=== PATIENT | female | born 1995 | race Caucasian/White ===

== ENCOUNTER → 2017-03-01 | Outpatient (CLI) | payer OTHER ==
[~2017-03-01] MED LIST: DIPHENHYDRAMINE HCL 25 MG CAPSULE ONE
[2017-03-01 14:33] LABS: ABSOLUTE BASOPHILS # (AUTO) 0.1 10^3/uL (0.0-0.2); ABSOLUTE EOSINOPHILS # (AUTO) 0.2 10^3/uL (0.0-0.6); ABSOLUTE LYMPHOCYTES (AUTO) 2.6 10^3/uL (0.5-4.7); ABSOLUTE MONOCYTES (AUTO) 0.6 10^3/uL (0.1-1.4); ABSOLUTE NEUT (AUTO) 5.7 10^3/uL (1.7-8.2); BASOPHILS % (AUTO) 0.8 % (0-2); EOSINOPHILS % (AUTO) 2.1 % (0-6); HEMATOCRIT 39.4 % (36.0-47.0); HGB HCT DIFFERENCE 2.6; LYMPHOCYTES % (AUTO) 28.8 % (13-45); MEAN CORPUSCULAR HEMOGLOBIN 30.8 pg (27.0-33.4); MEAN CORPUSCULAR HGB CONC 35.4 g/dL (32.0-36.0); MEAN CORPUSCULAR VOLUME 87 fl (80-97); MONOCYTES % (AUTO) 6.1 % (3-13); RED BLOOD COUNT 4.54 10^6/uL (3.72-5.28); RED CELL DISTRIBUTION WIDTH 13.9 % (11.5-14.0); SEGMENTED NEUTROPHILS % (AUTO) 62.2 % (42-78); WHITE BLOOD COUNT 9.2 10^3/uL (4.0-10.5)
[2017-03-01 14:55] LABS: ALANINE AMINOTRANSFERASE 215 U/L (9-52); ALBUMIN 4.7 g/dL (3.5-5.0); ALKALINE PHOSPHATASE 101 U/L (38-126); ANION GAP 16 (5-19); ASPARTATE AMINO TRANSFERASE 338 U/L (14-36); BILIRUBIN,DIRECT 0.4 mg/dL (0.0-0.4); BILIRUBIN,TOTAL 0.5 mg/dL (0.2-1.3); BLOOD UREA NITROGEN 11 mg/dL (7-20); CALCIUM 10.2 mg/dL (8.4-10.2); CARBON DIOXIDE 24 mmol/L (22-30); CHLORIDE 103 mmol/L (98-107); CREATININE RESULT 0.63 mg/dL (0.52-1.25); GLUCOSE 90 mg/dL (75-110); POTASSIUM 4.4 mmol/L (3.6-5.0); SODIUM 143.1 mmol/L (137-145); TOTAL PROTEIN 7.8 g/dL (6.3-8.2)
--- NOTE | 2017-03-01 15:19 | RADIOLOGY REPORT (SQ) ---
EXAM DESCRIPTION: CTA CHEST COMPLETED DATE/TIME: 03/01/2017 3:01 pm REASON FOR STUDY: CHEST PAIN (R07.9) R07.9 CHEST PAIN, UNSPECIFIED R00.0 TACHYCARDIA, UNSPECIFIED COMPARISON: CT SOFT TISSUE NECK WITH IV CONTRAST 04/19/2013 TECHNIQUE: CT scan of the chest performed using helical scanning technique with dynamic intravenous contrast injection. Images reviewed with lung, soft tissue and bone windows. Reconstructed coronal and sagittal MPR images reviewed. Additional 3 dimensional post-processing performed to develop Maximal Intensity Projection images (CA P). All images stored on PACS. All CT scanners at this facility use dose modulation, iterative reconstruction, and/or weight based d osing when appropriate to reduce radiation dose to as low as reasonably achievable (ALARA). [facility]: Dose Right [facility]: CareDose [facility]: Dose Right [facility]: Teradose 4D [facility]: Protein Forest CONTRAST TYPE AND DOSE: 72 mL of IV Isovue 370- low osmolar. Immediately post injection, patient sneezed, head EGA thigh is, watery eyes, itchy row. No wheezing or stridor. Vital signs stable. This responded to 50 mg of p.o. Benadryl. Contrast bolus optimized for the pulmonary arteries. Not diagnostic for the aorta. RENAL FUNCTION: None required. The patient is less than 50 years old. RADIATION DOSE: Up-to-date CT equipment and radiation dose reduction techniques were employed. CTDIv ol: 11.3 - 15.4 mGy. DLP: 494 mGy-cm. . LIMITATIONS: None. FINDINGS: LUNGS AND PLEURA: No masses, infiltrates, pneumothorax. No pleural effusions, calcificati ons. AORTA AND GREAT VESSELS: No aneurysm. Contrast bolus not optimized for the aorta. HEART: No pericardial effusion. No significant coronary artery calcifications. PULMONARY ARTERIES: No emboli visualized in the main pulmonary arteries or the segmental branches. HILAR AND MEDIASTINAL STRUCTURES: No identified masses or abnormal nodes. HARDWARE: None in the chest. UPPER ABDOMEN: No significant findings. Limited exam. THYROID AND OTHER SOFT TISSUES: No masses. No adenopathy. BONES: No acute or significant finding. 3D MIPS: Confirm above findings. OTHER: No other significant finding. IMPRESSION: NORMAL CTA OF THE CHEST. NO PULMONARY EMBOLI. Minor contrast reaction which responded to p.o. Benadryl COMMENT: Quality ID # [id number]: Final reports with documentation of one or more dose reduction techniques (e.g., Automated exposure control, adjustment of the mA and/or kV according to patient size, use of iterative reconstruction technique) TECHNICAL DOCUMENTATION: JOB ID: [id number] [employer]- All Rights Reserved
== END ==
LOC: RAD 13:51
PROVIDERS: ATTEND Physician Assistant
DX: R07.9 Chest pain, unspecified (principal); Z30.09 Encounter for other general counseling and advice on contraception
CPT/HCPCS: 36415; 71275; 80053; 82565; 84484; 84702; 85025

== ENCOUNTER → 2017-03-09 | Outpatient (CLI) | payer OTHER ==
--- NOTE | 2017-03-09 10:35 | WOMENS IMAGING REPORT ---
EXAM DESCRIPTION: U/S ABDOMEN LIMITED COMPLETED DATE/TIME: 03/09/2017 7:20 am REASON FOR STUDY: ABNORMAL LIVER FUNCTION TEST R79.89 OTHER SPECIFIED ABNORMAL FINDINGS OF BLOOD CH EMISTRY COMPARISON: CT angio chest 03/01/2017 TECHNIQUE: Dynamic and static grayscale images acquired of the abdomen and recorded on PACS. Additio nal selected color Doppler and spectral images recorded. LIMITATIONS: Midline bowel gas FINDINGS: PANCREAS: No masses. Visualized pancreatic duct normal caliber. LIVER: Normal size. No masses. Mild increased echogenicity from fatty infiltration LIVER VASCULATURE: Normal directional flow of the main portal vein and hepatic veins. GALLBLADDER: No stones. Normal wall thickness. No pericholecystic fluid. ULTRASOUND-DETECTED CASTORENA'S SIGN: Negative. INTRAHEPATIC DUCTS AND COMMON DUCT: CBD and intrahepatic ducts normal caliber. No filling defects. INFERIOR VENA CAVA: Normal flow. AORTA: No aneurysm. RIGHT KIDNEY: Normal size. Normal echogenicity. No solid or suspicious masses. No hydronephrosis. No calcifications. PERITONEAL AND RIGHT PLEURAL SPACE: No ascites or effusions. OTHER: No other significant findings. IMPRESSION: FATTY LIVER. OTHERWISE, NORMAL RIGHT UPPER QUADRANT ULTRASOUND. TECHNICAL DOCUMENTATION: JOB ID: [id number] [email or web address]- All Rights Reserved
== END ==
LOC: RAD 06:51
PROVIDERS: ATTEND Family Medicine
DX: R79.89 Other specified abnormal findings of blood chemistry (principal); K76.0 Fatty (change of) liver, not elsewhere classified
CPT/HCPCS: 76705

== ENCOUNTER 2018-09-05 13:47 | Emergency (ER) | payer SELFPAY ==
--- NOTE | 2018-09-05 14:41 | ER Document Report ---
ED Medical Screen (RME) - General Chief Complaint: Vag Bleeding, +preg <12wks Stated Complaint: VAGINAL BLEEDING Time Seen by Provider: 09/05/18 14:26 Primary Care Provider: MARTY CASAREZ MD [Primary Care Provider] - Follow up as needed Mode of Arrival: Ambulatory Information source: Patient TRAVEL OUTSIDE OF THE [place] IN LAST 30 DAYS: No - HPI Patient complains to provider of: PREG, VAG BLEEDING Notes: 09/05/18 14:39 Patient is here with complaints of vaginal bleeding and cramping. The patient is proximately 6 weeks . Last normal menstrual. Was beginning of July. She states that she thinks is approximately 6 weeks . This is her second , one living child. States that earlier today at work after urinating she noticed some blood in the toilet as well on the toilet paper. She is been having some intermittent right lower pelvic cramping for the last 2 days. No pain now. No fever. Exam Nontoxic, no distress. Lungs clear and equal throughout. Heart sounds normal. No abdominal tenderness on limited triage abdominal exam. Plan CBC, CMP, Rh, quantitative hCG, urinalysis, pelvic ultrasound. An initial examination was made on the patient as part of the triage process, and it was determined a more comprehensive evaluation was necessary. Initial labs were ordered and patient was transferred to another provider in the ED who assumed care and finished evaluation and plan. - Related Data Allergies/Adverse Reactions: Iodinated Contrast- Oral and IV Dye Allergy (Mild, Verified 03/01/17 15:21) Sneezing cefdinir [From Omnicef] Allergy (Verified 04/19/13 13:10) lisinopril Allergy (Verified 09/05/18 13:48) Past Medical History Renal/ Medical History: Denies: Hx Peritoneal Dialysis Physical Exam - Vital signs Vitals: Temp Pulse Resp BP Pulse Ox 98.4 F 107 H 16 142/78 H 96 09/05/18 13:52 09/05/18 13:52 09/05/18 13:52 09/05/18 13:52 09/05/18 13:52 Course - Vital Signs Vital signs: Temp Pulse Resp BP Pulse Ox 98.4 F 107 H 16 142/78 H 96 09/05/18 13:52 09/05/18 13:52 09/05/18 13:52 09/05/18 13:52 09/05/18 13:52 Doctor's Discharge - Discharge Referrals: MARTY CASAREZ MD [Primary Care Provider] - Follow up as needed
[2018-09-05 15:52] LABS: APPEARANCE,URINE CLEAR; BILIRUBIN,URINE NEGATIVE (NEGATIVE); COLOR,URINE YELLOW; GLUCOSE, URINE NEGATIVE (NEGATIVE); KETONES,URINE NEGATIVE (NEGATIVE); LEUKOCYTE ESTERASE,URINE NEGATIVE (NEGATIVE); NITRITE,URINE NEGATIVE (NEGATIVE); PROTEIN,URINE NEGATIVE (NEGATIVE); UROBILINOGEN,URINE NEGATIVE mg/dL (<2.0)
[2018-09-05 15:54] LABS: ABSOLUTE EOSINOPHILS # (AUTO) 0.2 10^3/uL (0.0-0.6); ABSOLUTE LYMPHOCYTES (AUTO) 2.9 10^3/uL (0.5-4.7); ABSOLUTE MONOCYTES (AUTO) 0.7 10^3/uL (0.1-1.4); ABSOLUTE NEUT (AUTO) 5.6 10^3/uL (1.7-8.2); BASOPHILS % (AUTO) 0.4 % (0-2); EOSINOPHILS % (AUTO) 2.5 % (0-6); HEMATOCRIT 40.9 % (36.0-47.0); HEMOGLOBIN 14.2 g/dL (12.0-15.5); MEAN CORPUSCULAR HEMOGLOBIN 30.6 pg (27.0-33.4); MEAN CORPUSCULAR HGB CONC 34.6 g/dL (32.0-36.0); MEAN CORPUSCULAR VOLUME 88 fl (80-97); MONOCYTES % (AUTO) 7.5 % (3-13); PLATELET COUNT 215 10^3/uL (150-450); RED BLOOD COUNT 4.63 10^6/uL (3.72-5.28); RED CELL DISTRIBUTION WIDTH 13.6 % (11.5-14.0); SEGMENTED NEUTROPHILS % (AUTO) 58.6 % (42-78); TOTAL CELLS COUNTED % (AUTO) 100 %; WHITE BLOOD COUNT 9.5 10^3/uL (4.0-10.5)
[2018-09-05 16:11] LABS: ALANINE AMINOTRANSFERASE 42 U/L (9-52); ALBUMIN 4.7 g/dL (3.5-5.0); ALKALINE PHOSPHATASE 68 U/L (38-126); ANION GAP 9 (5-19); ASPARTATE AMINO TRANSFERASE 34 U/L (14-36); BILIRUBIN,DIRECT 0.2 mg/dL (0.0-0.4); BILIRUBIN,TOTAL 0.4 mg/dL (0.2-1.3); BLOOD UREA NITROGEN 9 mg/dL (7-20); CARBON DIOXIDE 27 mmol/L (22-30); CHLORIDE 104 mmol/L (98-107); GLUCOSE 94 mg/dL (75-110); POTASSIUM 4.1 mmol/L (3.6-5.0); SODIUM 139.7 mmol/L (137-145); TOTAL PROTEIN 7.8 g/dL (6.3-8.2)
--- NOTE | 2018-09-05 16:22 | ER Document Report ---
ED General - General Chief Complaint: Vag Bleeding, +preg <12wks Stated Complaint: VAGINAL BLEEDING Time Seen by Provider: 09/05/18 14:26 Primary Care Provider: MARTY CASAREZ MD [Primary Care Provider] - Follow up as needed Mode of Arrival: Ambulatory Information source: Patient TRAVEL OUTSIDE OF THE [place] IN LAST 30 DAYS: No - HPI Notes: 23 y rold female presents today with one episode of "pink tinged color urination" early this morning, last LMP end of July 2018, . just started prenatals. Pt ambulated to triage without difficulty. Pt states she is approx 6 weeks and reports pink tinged blood when wiping after urination. no vaginal bleeding, vaginal pain, pelvic pain. Denies fevers, chills, chest pain, palpitations, shortness of breath, dyspnea, nausea, vomiting, diarrhea, abdominal pain, hematuria,blurred vision, double vision, loss of vision, speech changes, LH, dizziness, syncope, headaches, wheezing, ST, URI, neck pain, weakness, bowel or bladder dysfunction, saddle anesthesia, numbness or tingling in bilateral upper or lower extremities equally, muscle paralysis, weakness in bilateral upper or lower extremities equally or rash. - Related Data Allergies/Adverse Reactions: Iodinated Contrast- Oral and IV Dye Allergy (Mild, Verified 03/01/17 15:21) Sneezing cefdinir [From Omnicef] Allergy (Verified 04/19/13 13:10) lisinopril Allergy (Verified 09/05/18 13:48) Past Medical History - General Information source: Patient - Social History Smoking Status: Never Smoker Family History: Reviewed & Not Pertinent Patient has suicidal ideation: No Patient has homicidal ideation: No Renal/ Medical History: Denies: Hx Peritoneal Dialysis Review of Systems - Review of Systems Constitutional: No symptoms reported EENT: No symptoms reported Cardiovascular: No symptoms reported Respiratory: No symptoms reported Gastrointestinal: No symptoms reported Genitourinary: No symptoms reported Female Genitourinary: See HPI Musculoskeletal: No symptoms reported Skin: No symptoms reported Hematologic/Lymphatic: No symptoms reported Neurological/Psychological: No symptoms reported Physical Exam - Vital signs Vitals: Temp Pulse Resp BP Pulse Ox 98.4 F 107 H 16 142/78 H 96 09/05/18 13:52 09/05/18 13:52 09/05/18 13:52 09/05/18 13:52 09/05/18 13:52 - Notes Notes: PHYSICAL EXAMINATION: GENERAL: Well-appearing, well-nourished and in no acute distress. HEAD: Atraumatic, normocephalic. EYES: Pupils equal round and reactive to light, extraocular movements intact, conjunctiva are normal. ENT: Nares patent, oropharynx clear without exudates. Moist mucous membranes. NECK: Normal range of motion, supple without lymphadenopathy LUNGS: Breath sounds clear to auscultation bilaterally and equal. No wheezes rales or rhonchi. HEART: Regular rate and rhythm without murmurs ABDOMEN: Soft, nontender, nondistended abdomen. No guarding, no rebound. No masses appreciated. Female : External genitalia without erythema, exudate or discharge. Vaginal vault is without discharge. Cervix is of normal color without lesion. There is no bleeding noted. Uterus is noted to be of normal size and nontender. No cervical motion tenderness is seen. No masses are palpated. os closed, no adnexal tenderness or mass Musculoskeletal: Normal range of motion, no pitting or edema. No cyanosis. NEUROLOGICAL: Cranial nerves grossly intact. Normal speech, normal gait. Normal sensory, motor exams PSYCH: Normal mood, normal affect. SKIN: Warm, Dry, normal turgor, no rashes or lesions noted. Course - Re-evaluation Re-evalutation: 09/05/18 18:09 Patient presents with a mild amount of vaginal bleeding in the setting of an early first trimester . Transvaginal ultrasound is unable to visualize an intrauterine at this time. Serum hCG is 600, which is low if patient is 6 weeks , likely is is less than 6 weeks preganant or could be an ectopic . No active bleeding at time of presentation. 0 positive. Patient's abdominal exam is otherwise benign without any focal tenderness. I do not suspect an acute appendicitis, pyelonephritis, cystitis, or bowel obstruction. At this time I have informed the patient that she needs to return to the emergency department or the women's clinic in 48 hours for recheck of her quantitative beta hCG to assess whether or not this is a normal or a possible ectopic .At this time will discharge with return precautions and follow-up recommendations. Verbal discharge instructions given a the bedside and opportunity for questions given. Medication warnings reviewed. Patient is in agreement with this plan and has verbalized understandi ng of return precautions and the need for primary care follow-up in the next 24- 72 hours. - Vital Signs Vital signs: Temp Pulse Resp BP Pulse Ox 98.2 F 80 16 133/70 H 100 09/05/18 15:36 09/05/18 15:36 09/05/18 15:36 09/05/18 15:36 09/05/18 15:36 - Laboratory Result Diagrams: 09/05/18 15:30 09/05/18 15:30 Laboratory results interpreted by me: 09/05/18 09/05/18 15:30 15:30 Beta HCG, Quant 602.81 H Urine Blood SMALL H Discharge - Discharge Clinical Impression: Vaginal bleeding before 22 weeks gestation Qualifiers: Weeks of gestation: less than 8 weeks Qualified Code(s): Z3A.01 - Less than 8 weeks gestation of Condition: Stable Disposition: HOME, SELF-CARE Additional Instructions: repeat serum hcg and transvaginal u/trasound in 48 hours to determine if you are experiencing an ectopic you are 0 positive, no rhogam needed. your exam was normal today. start vitamins. follow up with obgyn or health department in 48 hours or come back to ER. Your ultrasound today shows a living intrauterine . Please follow closely with your primary care REEL REPAIRER. Please return if you develop severe abdominal pain, bleeding that goes through more than 2 pads for more than 2 hours, pass out, or have any other symptoms that are concerning to you. Please follow-up closely with your OBGYN regarding todays visit. Prescriptions: Pnv No.95/Ferrous Fum/Folic AC [ Caplet] 1 each PO DAILY #20 tablet Forms: Return to Work Referrals: MARTY CASAREZ MD [Primary Care Provider] - Follow up as needed MARGARITA BAEZ MD [ACTIVE STAFF] - Follow up as needed (24-48 hours)
--- NOTE | 2018-09-05 16:31 | RADIOLOGY REPORT (SQ) ---
EXAM DESCRIPTION: U/S OB TRANSVAG W/DOPPLER COMPLETED DATE/TIME: 09/05/2018 4:18 pm REASON FOR STUDY: PREG, BLEEDING COMPARISON: None. TECHNIQUE: Transvaginal static and realtime grayscale images acquired of the pelvis. Additional kaelyn cted spectral and color Doppler images recorded. All images stored on PACs. CLINICAL AGE: 7 week 2 day. bHCG: Not available. LIMITATIONS: None. FINDINGS: UTERUS: No masses. No anomalies. GESTATIONAL SAC: Possible tiny gestational sac. Measurements with correspond with a 4 week 6 day ges tation. YOLK SAC: No. POLE: None present. RIGHT ADNEXA: Normal ovary with normal vascular flow. No adnexal free fluid. 1.5 cm cyst. LEFT ADNEXA: Normal ovary with normal vascular flow. No adnexal free fluid. No adnexal masses. FREE FLUID: None. OTHER: No other significant finding. IMPRESSION: POSSIBLE EARLY INTRAUTERINE . BHCG LEVEL NOT AVAILABLE FOR CORRELATION WITH US FINDINGS. CONSIDER F/U BHCG AND/OR ULTRASOUND FOR VERIFICATION AND TO EXCLUDE ECTOPIC . Trimester of : First - 0 to 13 weeks. TECHNICAL DOCUMENTATION: JOB ID: [id number] [employer]- All Rights Reserved Reading location - IP/workstation name: [email or web address]
[2018-09-05 18:31] VITALS: BP 130/66
[2018-09-05 20:28] LABS: CHLAM PCR NOT DETECTED (NOT DETECT); GON PCR NOT DETECTED (NOT DETECT)
== END 2018-09-05 18:32 | disposition home or self-care (01) ==
LOC: ER 13:47
DX: O46.91 Antepartum hemorrhage, unspecified, first trimester (principal); O26.891 Other specified pregnancy related conditions, first trimester; R10.2 Pelvic and perineal pain; Z3A.01 Less than 8 weeks gestation of pregnancy
CPT/HCPCS: 36415; 76817; 80053; 81001; 84702; 85025; 86900; 86901; 87491; 87591; 93976; 99284

== ENCOUNTER 2018-09-07 07:28 | Emergency (ER) | payer SELFPAY ==
--- NOTE | 2018-09-07 11:51 | RADIOLOGY REPORT (SQ) ---
EXAM DESCRIPTION: U/S OB TRANSVAG W/DOPPLER COMPLETED DATE/TIME: 09/07/2018 11:30 am REASON FOR STUDY: low abd pain cramping COMPARISON: 09/05/2018 TECHNIQUE: Transvaginal static and realtime grayscale images acquired of the pelvis. Additional kaelyn cted spectral and color Doppler images recorded. All images stored on PACs. bHCG: Not available CLINICAL DATES: LMP 07/18/2018. 7 weeks 2 days. LIMITATIONS: None. FINDINGS: FETUS: Single Living intrauterine . ULTRASOUND EGA: 5 weeks 2 days by gestational sac size. ULTRASOUND COREEN: 05/08/2019. EFW: Not applicable less than 20 weeks. CRL: pole is not yet seen. FHR: pole is not yet seen. Beats per minute. SURVEY: Too early to assess. AMNIOTIC FLUID: Adequate amount. PLACENTA: Not yet developed due to early gestation. SUBCHORIONIC BLEED: No SIZE OF BLEED: Not applicable. UTERUS: No masses or anomalies. 7.9 x 4.7 x 3.9 cm. CERVICAL LENGTH: 1.5 cm. Closed. RIGHT ADNEXA: Normal ovary with normal vascular flow. 3.5 x 3 x 2.3 cm. There is a 13 mm corpus lut eum. No adnexal free fluid. No adnexal masses. LEFT ADNEXA: Normal ovary with normal vascular flow. 2.9 x 1.7 x 2.4 cm. No adnexal free fluid. No adnexal masses. FREE FLUID: None. OTHER: No other significant finding. IMPRESSION: There is an intrauterine gestational sac suggesting a gestation of 5 weeks 2 days. Feta l pole is not yet seen. Follow-up as clinically indicated. TECHNICAL DOCUMENTATION: JOB ID: [id number] [employer]- All Rights Reserved rev Reading location - IP/workstation name: [email or web address]
--- NOTE | 2018-09-07 12:26 | ER Document Report ---
ED General - General Chief Complaint: Abdominal Cramping Stated Complaint: FOLLOW UP/BLOOD WORK Time Seen by Provider: 09/07/18 07:47 Primary Care Provider: MARTY CASAREZ MD [Primary Care Provider] - Follow up as needed TRAVEL OUTSIDE OF THE [place] IN LAST 30 DAYS: No - HPI Patient complains to provider of: Abdominal cramping Notes: Patient was seen approximate 48 hours ago for vaginal bleeding she is a G2, P1. Patient had a beta-hCG at that time 602 told to follow-up with health department. Patient states she cannot follow-up with appointment at this time no her CHIEF TELEPHONE OPERATOR therefore came back to the ER for repeat testing. Patient otherwise states no further bleeding slight abdominal cramping. Denies any trauma denies any fevers chills nausea vomiting diarrhea. - Related Data Allergies/Adverse Reactions: Iodinated Contrast- Oral and IV Dye Allergy (Mild, Verified 03/01/17 15:21) Sneezing cefdinir [From Omnicef] Allergy (Verified 04/19/13 13:10) lisinopril Allergy (Verified 09/05/18 13:48) Past Medical History - Social History Smoking Status: Never Smoker Frequency of alcohol use: None Drug Abuse: None Family History: Reviewed & Not Pertinent Patient has suicidal ideation: No Patient has homicidal ideation: No Renal/ Medical History: Denies: Hx Peritoneal Dialysis Review of Systems - Review of Systems Constitutional: No symptoms reported EENT: No symptoms reported Cardiovascular: No symptoms reported Respiratory: No symptoms reported Gastrointestinal: Abdominal pain Genitourinary: No symptoms reported Female Genitourinary: No symptoms reported Musculoskeletal: No symptoms reported Skin: No symptoms reported Hematologic/Lymphatic: No symptoms reported Neurological/Psychological: No symptoms reported -: Yes All other systems reviewed and negative Physical Exam - Vital signs Vitals: Temp Pulse Resp BP Pulse Ox 98.2 F 87 16 134/76 H 97 09/07/18 07:31 09/07/18 07:31 09/07/18 07:31 09/07/18 07:31 09/07/18 07:31 Interpretation: Normal - General General appearance: Appears well, Alert - HEENT Head: Normocephalic, Atraumatic Eyes: Normal Pupils: PERRL - Respiratory Respiratory status: No respiratory distress Chest status: Nontender Breath sounds: Normal Chest palpation: Normal - Cardiovascular Rhythm: Regular Heart sounds: Normal auscultation Murmur: No - Abdominal Inspection: Normal Distension: No distension Bowel sounds: Normal Tenderness: Nontender Organomegaly: No organomegaly - Back Back: Normal, Nontender - Extremities General upper extremity: Normal inspection, Nontender, Normal color, Normal ROM, Normal temperature General lower extremity: Normal inspection, Nontender, Normal color, Normal ROM, Normal temperature, Normal weight bearing. No: Cristian's sign - Neurological Neuro grossly intact: Yes Cognition: Normal Orientation: AAOx4 Roger Coma Scale Eye Opening: Spontaneous Lykens Coma Scale Verbal: Oriented Lykens Coma Scale Motor: Obeys Commands Roger Coma Scale Total: 15 Speech: Normal Motor strength normal: LUE, RUE, LLE, RLE Sensory: Normal - Psychological Associated symptoms: Normal affect, Normal mood - Skin Skin Temperature: Warm Skin Moisture: Dry Skin Color: Normal Course - Re-evaluation Re-evalutation: 09/07/18 14:04 Beta-hCG has increased to over 12,000 therefore patient underwent ultrasound showing a gestational sac in the uterus decreased patient's chances of having ectopic with abdominal cramping. Patient was recommended follow-up with your CHIEF TELEPHONE OPERATOR. Patient is to continue with vitamins. Nausea medication information was given also to the patient. - Vital Signs Vital signs: Temp Pulse Resp BP Pulse Ox 98.3 F 82 18 120/72 100 09/07/18 12:38 09/07/18 12:38 09/07/18 12:38 09/07/18 12:38 09/07/18 12:38 - Laboratory Laboratory results interpreted by me: 09/07/18 08:00 Beta HCG, Quant 1291.40 H Discharge - Discharge Clinical Impression: Vaginal bleeding before 22 weeks gestation Qualifiers: Weeks of gestation: less than 8 weeks Qualified Code(s): Z3A.01 - Less than 8 weeks gestation of Disposition: HOME, SELF-CARE Instructions: Bleeding During Early ([facility]), ([facility]) Additional Instructions: Your ultrasound today shows signs of a intrauterine congratulations. Please observe pelvic rest nothing inside the vagina no sex no toys no tampons until you are cleared by a new CHIEF TELEPHONE OPERATOR. If your symptoms worsen please return to the ER for further evaluation. Please continue with your vitamins [id number]. Take Tylenol for any pain For nausea and vomiting during I recomment: Start with 10-12.5 mg of pyridoxine (vitamin B6) three times a day for 2 days. If not fully effective, Increase to 12.5 mg of pyridoxine four times a day for 2 days. If not fully effective, Increase to 25 mg of pyridoxine three times a day for 2 days. If not fully effective, Continue 25 mg pyridoxine 3 times a day, and add 12.5 mg of doxylamine before bedtime each day for 2 days. If not fully effective, Continue 25 mg pyridoxine 3 times a day, and take 12.5 mg of doxylamine twice a day. If not fully effective, Continue 25 mg pyridoxine 3 times a day, and take 12.5 mg of doxylamine three times a day. If not fully effective, Continue 25 mg pyridoxine 3 times a day, and 12.5 mg of doxylamine 3 times a day, while adding Emetrol, one to two tablespoons (15-30 cc) taken once or twice a day as needed. (Emetrol is an [id number] mixture of sugar syrups and phosphoric acid [phosphorylated carbohydrate solution]) that acts by soothing the actual wall of the gastrointestinal tract). If not fully effective, Consult with your doctor. Referrals: MARTY CASAREZ MD [Primary Care Provider] - Follow up as needed
[2018-09-07 12:40] VITALS: BP 120/72
== END 2018-09-07 12:39 | disposition home or self-care (01) ==
LOC: ER 07:28
DX: O20.9 Hemorrhage in early pregnancy, unspecified (principal); O26.891 Other specified pregnancy related conditions, first trimester; R10.9 Unspecified abdominal pain; Z3A.01 Less than 8 weeks gestation of pregnancy; Z91.041 Radiographic dye allergy status; Z88.1 Allergy status to other antibiotic agents; Z88.8 Allergy status to other drugs, medicaments and biological substances
CPT/HCPCS: 36415; 76817; 84702; 93976; 99283

== ENCOUNTER 2019-03-22 13:09 | Outpatient (CLI) | payer BC, MEDICAID ==
[2019-03-22 14:14] LABS: APPEARANCE,URINE CLEAR; BILIRUBIN,URINE NEGATIVE (NEGATIVE); COLOR,URINE YELLOW; GLUCOSE, URINE NEGATIVE (NEGATIVE); KETONES,URINE NEGATIVE (NEGATIVE); LEUKOCYTE ESTERASE,URINE NEGATIVE (NEGATIVE); NITRITE,URINE NEGATIVE (NEGATIVE); PROTEIN,URINE NEGATIVE (NEGATIVE); URINE SPECIFIC GRAVITY 1.016; UROBILINOGEN,URINE NEGATIVE mg/dL (<2.0)
[2019-03-22 14:29] LABS: URINE AMPHETAMINES SCREEN NEGATIVE; URINE BARBITURATES SCREEN NEGATIVE; URINE BENZODIAZEPINES SCREEN NEGATIVE; URINE COCAINE SCREEN NEGATIVE; URINE MARIJUANA (THC) SCREEN NEGATIVE; URINE METHADONE SCREEN NEGATIVE; URINE PHENCYCLIDINE SCREEN NEGATIVE
--- NOTE | 2019-03-22 15:32 | Non Stress Test Report ---
Non Stress Test Datetime Report Generated by CPN: 03/22/2019 15:32 DEMOGRAPHIC EGA NST: 32.5 INDICATION Indication for Study: labor MONITORING Monitor Explained: Monitor Explained; Test Explained; Patient Verbalized Understanding Time on Monitor: 03/22/2019 13:21 Time off Monitor: 03/22/2019 13:41 NST Duration: 20 NST INTERVENTIONS NST Interventions: PO Hydration; Reposition Patient Physician Notified NST: P Sharma CNM BABY A: [id number] BABY A Movement : Present Contraction Frequency : irregular FHR Baseline : 155 Accelerations : 15X15 Decelerations : None Variability : Moderate 6-25bpm NST Review: Meets Criteria for Reactive NST NST Review and Verified By : AL Higgins NST Results: Reactive NST REPORT Report Trigger: Send Report
--- NOTE | 2019-03-22 15:41 | RADIOLOGY REPORT (SQ) ---
EXAM DESCRIPTION: U/S OB LIMITED COMPLETED DATE/TIME: 03/22/2019 2:40 pm REASON FOR STUDY: 32 weeks CTX for cervical length COMPARISON: None. TECHNIQUE: Limited transvaginal grayscale ultrasound for evaluation of specific requested obstetrica l parameters. LIMITATIONS: None. FINDINGS: CERVICAL LENGTH: 3.5 cm. Closed. PAULINE: 12.5 cm. FHR: 136 beats per minute. PRESENTATION: Cephalic. PLACENTA: Fundal ANATOMY: Not assessed OTHER: No other significant findings. IMPRESSION: LIMITED OBSTETRICAL ULTRASOUND WITH MEASURED PARAMETERS DELINEATED ABOVE. Trimester of : Third trimester - 28 weeks to delivery. TECHNICAL DOCUMENTATION: JOB ID: [id number] [employer]- All Rights Reserved Reading location - IP/workstation name: [email or web address]
== END 2019-03-22 15:18 | disposition home or self-care (01) ==
LOC: LC 13:09
PROVIDERS: ATTEND Obstetrics & Gynecology Gynecology
PROC: 4A1HXCZ Monitoring of Products of Conception, Cardiac Rate, External Approach (ICD-10-PCS; principal; 2019-03-22)
DX: O60.03 Preterm labor without delivery, third trimester (principal); Z3A.32 32 weeks gestation of pregnancy
CPT/HCPCS: 59025; 76815; 80307; 81001

== ENCOUNTER 2019-03-24 04:58 | Inpatient (IN) | payer BC, MEDICAID ==
[2019-03-24 05:24] LABS: APPEARANCE,URINE CLEAR; BILIRUBIN,URINE NEGATIVE (NEGATIVE); COLOR,URINE STRAW; GLUCOSE, URINE NEGATIVE (NEGATIVE); KETONES,URINE NEGATIVE (NEGATIVE); LEUKOCYTE ESTERASE,URINE NEGATIVE (NEGATIVE); NITRITE,URINE NEGATIVE (NEGATIVE); PROTEIN,URINE NEGATIVE (NEGATIVE); URINE SPECIFIC GRAVITY 1.001; UROBILINOGEN,URINE NEGATIVE mg/dL (<2.0)
[2019-03-24 05:40] LABS: URINE AMPHETAMINES SCREEN NEGATIVE; URINE BARBITURATES SCREEN NEGATIVE; URINE BENZODIAZEPINES SCREEN NEGATIVE; URINE COCAINE SCREEN NEGATIVE; URINE MARIJUANA (THC) SCREEN NEGATIVE; URINE METHADONE SCREEN NEGATIVE; URINE PHENCYCLIDINE SCREEN NEGATIVE
[2019-03-24] MEDS ORDERED: BETAMET ACET/BETAMET NA INJ 6 MG/1 ML ONE (05:52)
[2019-03-24] MEDS ORDERED: MAGNESIUM SULFATE 4 GM/100 ML RTUPB IV ONE (05:53)
[2019-03-24] MEDS ORDERED: ERYTHROMYCIN INJ 500 MG VIAL IV ONE ×4 (05:53→19:28)
[2019-03-24] MEDS ORDERED: AMPICILLIN SOD INJ 2 GM VIAL ONE ×3 (05:53→18:58)
[2019-03-24] MEDS ORDERED: MAGNESIUM SULFATE 20 GM/500 ML RTUINJ IV ONE ×2 (05:53→16:53)
[2019-03-24 06:17] LABS: ABSOLUTE EOSINOPHILS # (AUTO) 0.2 10^3/uL (0.0-0.6); ABSOLUTE LYMPHOCYTES (AUTO) 2.4 10^3/uL (0.5-4.7); ABSOLUTE MONOCYTES (AUTO) 0.7 10^3/uL (0.1-1.4); ABSOLUTE NEUT (AUTO) 8.3 10^3/uL (1.7-8.2); BASOPHILS % (AUTO) 0.2 % (0-2); EOSINOPHILS % (AUTO) 1.7 % (0-6); HEMATOCRIT 35.6 % (36.0-47.0); HEMOGLOBIN 12.1 g/dL (12.0-15.5); MEAN CORPUSCULAR HEMOGLOBIN 30.5 pg (27.0-33.4); MEAN CORPUSCULAR HGB CONC 34.1 g/dL (32.0-36.0); MEAN CORPUSCULAR VOLUME 90 fl (80-97); MONOCYTES % (AUTO) 5.9 % (3-13); PLATELET COUNT 189 10^3/uL (150-450); RED BLOOD COUNT 3.97 10^6/uL (3.72-5.28); RED CELL DISTRIBUTION WIDTH 14.5 % (11.5-14.0); SEGMENTED NEUTROPHILS % (AUTO) 71.2 % (42-78); TOTAL CELLS COUNTED % (AUTO) 100 %; WHITE BLOOD COUNT 11.6 10^3/uL (4.0-10.5)
[2019-03-24 06:27] LABS: ALBUMIN 3.5 g/dL (3.5-5.0); ALKALINE PHOSPHATASE 111 U/L (38-126); ANION GAP 10 (5-19); ASPARTATE AMINO TRANSFERASE 15 U/L (14-36); BILIRUBIN,DIRECT 0.1 mg/dL (0.0-0.4); BILIRUBIN,TOTAL 0.3 mg/dL (0.2-1.3); BLOOD UREA NITROGEN 4 mg/dL (7-20); CALCIUM 8.8 mg/dL (8.4-10.2); CARBON DIOXIDE 19 mmol/L (22-30); CHLORIDE 111 mmol/L (98-107); GLUCOSE 96 mg/dL (75-110); POTASSIUM 3.9 mmol/L (3.6-5.0); TOTAL PROTEIN 6.4 g/dL (6.3-8.2); URIC ACID 4.4 mg/dL (2.5-6.2)
--- NOTE | 2019-03-24 06:30 | Admission Physical ---
Datetime Report Generated by CPN: 03/24/2019 06:29 CURRENT ADMISSION Chief Complaint: Suspected Ruptured Membranes Chief Complaint Other: Woke at 0200 to void and gush of fluid in bed when she sat up. Clear fluid. Has noted cramping abdominal pain increasing in intensity since then and she describes it as her stomach tightening up every 3-4 minutes Admit Impression : , Intrauterine ; Ruptured Membranes Admit Impression- Other: at 33.0 wks by early OB US with PPROM Admit Plan: Admit to Unit; Initiate Labor Protocol ALLERGIES Medication Allergies: Yes Medication Allergies: Iodinated Contrast Media/PA/Sneezing (03/01/2017); lisinopril (09/05/2018); cefdinir (04/19/2013) Latex: No Latex Allergies Food Allergies: None Environmental Allergies: seasonal OBSTETRICAL HISTORY EDC: 05/12/2019 00:00 : 2 Para: 1 Term: 1 Livin Gestational Diabetes: No Rh Sensitization: No Incompetent Cervix: No GERALD: No Infertility: No ART Treatment: No Uterine Anomaly: No IUGR: No Hx Previous C/S: No Macrosomia: No Hx Loss/Stillborn: No PIH: No Hx : No Placenta Previa/Abruption: No Depression/PP Depression: No PTL/PROM: No Post Hemorrhage: No Current Procedures: Ultrasound; NST Obstetrical History Comments: G1-2015 induced for high blood pressure, normal vaginal delivery. G2-current SEE RECORDS Alcohol: No Marijuana : No Cocaine: No Other Illicit Drugs: No Cigarettes: Never Smoker. [id number] MEDICAL HISTORY Diabetes: No Blood Transfusion: No Pulmonary Disease (Asthma, TB): Yes Breast Disease: No Hypertension: Yes Administrative Services Specialist Surgery: No Heart Disease: No Hosp/Surgery: No Autoimmune Disorder: No Anesthetic Complications: No Kidney Disease: No Abnormal Pap Smear: No Neuro/Epilepsy: No Psychiatric Disorders: No Other Medical Diseases: No Hepatitis/Liver Disease: No Significant Family History: No Varicosities/Phlebitis: No Trauma/Violence : No Thyroid Dysfunction: No Medical History Comments: asthma, hypertension since age 17 INFECTIOUS HISTORY Gonorrhea: No Genital Herpes: No Chlamydia: No Tuberculosis: No Syphilis: No Hepatitis: No HIV/AIDS Exposure: No Rash or Viral Illness: No HPV: No PHYSICAL EXAM General: Normal HEENT: Normal Neurologic: Normal Thyroid: Normal Heart: Normal Lungs: Normal Breast: Normal Back: Normal Abdomen: Normal Genitourinary Exam: Normal Extremities: Normal DTRs: Normal Pelvic Type: Adequate Physical Exam Comments: Sterile spec exam showed large amount of clear fluid in vaginal vault. Cervix is 1 cm dilated and 50 % thinned. BSUS showed vertex presentation. Vital Signs: Reviewed; Within Normal Limits VAGINAL EXAM Dilatation: 1 Effacement: 30 Station: -3 Contraction Comments: Contractions Q 3-4 minutes MEMBRANES Pooling: Positive Membranes: Ruptured Amniotic Fluid Color: Clear FETUS A EGA: 33.0 Monitoring: External US FHR- Baseline: 135 Variability: Moderate 6-25bpm Decelerations: None FHR Category: Category I Presentation: Vertex Admit Comment: at 33.0 with s/p PPROM at 0200-clear fluid -Admit to LDR -NPO and IVFs -Labs obtained including vaginal cultures with GBS -CEFM and [place] -Vertex by BSUS -BMZ 12 mg IM now and repeat in 24 hrs -Ampicilllin 2 gm IV Q 6 hrs x 48 hours, erythromycin 250mg Q 6 hours IV for 48 hours. After this plan to start Amoxicillin and Erythromycin base and continue these for total of 5 days if still . -Contractions on toco. Will begin Mag sulfate 4 gms IV now and then 2gms /hr for tocolysis -Plan to delay labor for 48 hours if possible to get steroids on board. If she stays , will plan delivery at 34 wks. -Discussed plan with patient PLANS FOR LABOR AND DELIVERY Labor and Delivery: None Pain Management: Epidural Feeding Preference: Breast Circumcision: Yes INFORMED CONSENT Signature: with User ID: [email or web address] : with User ID: [email or web address]
[2019-03-24 10:56] LABS: CHLAM PCR NOT DETECTED (NOT DETECT)
[2019-03-24] MEDS ORDERED: AMPICILLIN SOD/SULBACTAM 3 GM VIAL IV SCH (12:30)
[2019-03-24] MEDS ORDERED: AMPICILLIN SOD INJ 1 GM VIAL IV SCH (12:30)
[2019-03-24] MEDS: AMPICILLIN SOD INJ 2 GM VIAL IV SCH ×2 (12:40→19:06)
[2019-03-24] MEDS ORDERED: ERYTHROMYCIN INJ 500 MG VIAL IV SCH (13:30)
[2019-03-24] MEDS: ERYTHROMYCIN INJ 500 MG VIAL IV SCH (19:54)
[2019-03-24] MEDS ORDERED: HYDROXYZINE PAMOATE 50 MG CAPSULE ONE (20:13)
[2019-03-24] MEDS ORDERED: HYDROXYZINE PAMOATE 50 MG CAPSULE PO ONE (20:21)
[2019-03-25] MEDS ORDERED: AMPICILLIN SOD INJ 2 GM VIAL ONE ×2 (00:56→07:17)
[2019-03-25] MEDS ORDERED: ERYTHROMYCIN INJ 500 MG VIAL IV ONE ×3 (02:13→21:49)
[2019-03-25] MEDS: ERYTHROMYCIN INJ 500 MG VIAL IV SCH ×3 (02:20→11:43)
[2019-03-25] MEDS ORDERED: HYDROXYZINE PAMOATE 50 MG CAPSULE ONE (02:34)
[2019-03-25] MEDS ORDERED: BETAMET ACET/BETAMET NA INJ 6 MG/1 ML ONE (05:57)
[2019-03-25] MEDS: AMPICILLIN SOD INJ 2 GM VIAL IV SCH ×3 (11:41→14:47)
[2019-03-25] MEDS: AMPICILLIN SODIUM 2 GM in NORMAL SALINE 100 ML IV SCH ×2 (14:46→20:40)
[2019-03-25] MEDS: ERYTHROMYCIN LACTOBIONATE 250 MG in NORMAL SALINE 100 ML IV SCH ×2 (15:50→22:22)
[2019-03-25] MEDS: RINGERS SOLUTION,LACTATED 1,000 ML IV PRN (15:51)
--- NOTE | 2019-03-25 16:09 | PDOC PROGRESS REPORT ---
Subjective Progress Note for:: 03/25/19 Subjective:: Doing well. NO fever or chills. Good FM. Still has occassional leak of fluid/clear. No vaginal bleeding. Toleration PO well. NO pain Reason For Visit: Physical Exam - Physical Exam Vital Signs: Temp Pulse Resp BP Pulse Ox 98.0 F 104 H 17 127/69 H 97 03/25/19 15:12 03/25/19 15:12 03/25/19 15:12 03/25/19 15:12 03/25/19 15:12 Intake & Output 03/24/19 03/25/19 03/26/19 06:59 06:59 06:59 Weight 98.3 kg General appearance: PRESENT: no acute distress, cooperative Respiratory exam: PRESENT: clear to auscultation kristine Cardiovascular exam: PRESENT: RRR, +S1, +S2 GI/Abdominal exam: PRESENT: normal bowel sounds - NO pain on fundal palpation, soft Skin exam: PRESENT: dry, normal color, warm Result Laboratory Results: 03/24/19 06:00 03/24/19 06:00 03/24/19 23:25 Magnesium 4.9 H* Assessment & Plan - Diagnosis (1) Risk of labor during , antepartum Is this a current diagnosis for this admission?: Yes - Time Time Spent with patient: 15-24 minutes Medications reviewed and adjusted accordingly: Yes Disposition: premature rupture of membranes on IV antibiotics ATC. No s/s of infection. Reassuring testing. Precautions reviewed
[2019-03-26] MEDS: AMPICILLIN SODIUM 2 GM in NORMAL SALINE 100 ML IV SCH ×4 (02:43→20:24)
[2019-03-26] MEDS: ERYTHROMYCIN LACTOBIONATE 250 MG in NORMAL SALINE 100 ML IV SCH ×4 (03:26→21:39)
--- NOTE | 2019-03-26 10:54 | PDOC PROGRESS REPORT ---
Subjective Progress Note for:: 03/26/19 Reason For Visit: @ 33w 2 days with PPROM. She feel occasional cramping and mild rectal pressure that was relieved with BM. +FM Physical Exam - Physical Exam Vital Signs: Temp Pulse Resp BP Pulse Ox 98.3 F 88 16 116/63 95 03/26/19 08:09 03/26/19 08:09 03/26/19 08:09 03/26/19 08:09 03/26/19 08:09 Intake & Output 03/25/19 03/26/19 03/27/19 06:59 06:59 06:59 Intake Total 540 Output Total 600 625 Balance -60 -625 Weight 98.3 kg 98 kg General appearance: PRESENT: no acute distress, cooperative GI/Abdominal exam: PRESENT: soft - Obstetrical Exam Fundal Height: u/3 - u/4 Tender: No Result Laboratory Results: 03/24/19 06:00 03/24/19 06:00 03/24/19 05:45 Vaginal/Anorectal Group B Streptococcus Culture - Final NO GROUP B STREPTOCOCCUS RECOVERED Assessment & Plan - Diagnosis (1) Rupture, membranes, premature Is this a current diagnosis for this admission?: Yes (2) Risk of labor during , antepartum Is this a current diagnosis for this admission?: Yes - Time Time Spent with patient: Less than 15 minutes Anticipated discharge: Home Within: Other - after delivery - Inpatient Certification Based on my medical assessment, after consideration of the patient's comorbidities, presenting symptoms, or acuity I expect that the services needed warrant INPATIENT care.: Yes I certify that my determination is in accordance with my understanding of Medicare's requirements for reasonable and necessary INPATIENT services [42 CFR 412.3e].: Yes Medical Necessity: Need Close Monitoring Due to Risk of Patient Decompensation - Plan Summary Plan Summary: plan for delivery at 34 wks which should be on Tuesday. reviewed with patient regarding delivery risks and plans. Continue current antibiotics x 2 more days.
[2019-03-26] MEDS: RINGERS SOLUTION,LACTATED 1,000 ML IV PRN (18:12)
[2019-03-27] MEDS: AMPICILLIN SODIUM 2 GM in NORMAL SALINE 100 ML IV SCH ×4 (02:17→20:38)
[2019-03-27] MEDS: ERYTHROMYCIN LACTOBIONATE 250 MG in NORMAL SALINE 100 ML IV SCH ×4 (03:23→22:00)
--- NOTE | 2019-03-27 09:36 | PDOC PROGRESS REPORT ---
Subjective Progress Note for:: 03/27/19 Subjective:: pt states she feels well Reason For Visit: SROM Physical Exam - Physical Exam Vital Signs: Temp Pulse Resp BP Pulse Ox 98.3 F 88 18 117/62 100 03/27/19 08:31 03/27/19 08:31 03/27/19 08:31 03/27/19 08:31 03/27/19 08:31 Intake & Output 03/26/19 03/27/19 03/28/19 06:59 06:59 06:59 Intake Total 1540 540 Output Total 600 1425 Balance 940 -885 Weight 98 kg 103.6 kg General appearance: PRESENT: no acute distress Respiratory exam: PRESENT: clear to auscultation kristine Cardiovascular exam: PRESENT: RRR GI/Abdominal exam: PRESENT: soft Result Laboratory Results: 03/24/19 06:00 03/24/19 06:00 03/24/19 05:45 Vaginal/Anorectal Group B Streptococcus Culture - Final NO GROUP B STREPTOCOCCUS RECOVERED Assessment & Plan - Diagnosis (1) Rupture, membranes, premature Is this a current diagnosis for this admission?: Yes - Time Time Spent with patient: Less than 15 minutes - Plan Summary Plan Summary: continue present plan of management anticipate delivery at 34 weeks
[2019-03-28] MEDS: AMPICILLIN SODIUM 2 GM in NORMAL SALINE 100 ML IV SCH ×2 (02:04→08:50)
[2019-03-28] MEDS: ERYTHROMYCIN LACTOBIONATE 250 MG in NORMAL SALINE 100 ML IV SCH ×2 (02:53→10:29)
--- NOTE | 2019-03-28 11:11 | PDOC PROGRESS REPORT ---
Subjective Progress Note for:: 03/28/19 Subjective:: Patient states that she feels good. Occasional pelvic pressure. Not soaking through peripads with changing every time she voids. She reports good movement. She is ambulating voiding without difficulty. She is tolerating a regular diet. Reason For Visit: premature rupture of membranes Physical Exam - Physical Exam Vital Signs: Temp Pulse Resp BP Pulse Ox 98.0 F 90 18 122/77 100 03/28/19 08:00 03/28/19 08:00 03/28/19 08:00 03/28/19 08:00 03/28/19 08:00 Intake & Output 03/27/19 03/28/19 03/29/19 06:59 06:59 06:59 Intake Total 640 1500 Output Total 1425 Balance -785 1500 Weight 103.6 kg 102.5 kg General appearance: PRESENT: no acute distress Respiratory exam: PRESENT: clear to auscultation kristine Cardiovascular exam: PRESENT: RRR GI/Abdominal exam: PRESENT: normal bowel sounds, soft - Gravid Musculoskeletal exam: ABSENT: ambulatory, deformity - CHRISTY hose in place, dislocation, full ROM, normal inspection, tenderness, other Result Laboratory Results: 03/24/19 06:00 03/24/19 06:00 03/26/19 15:36 Clean Catch Midstream Urine Culture - Final NO GROWTH 2 DAYS Assessment & Plan - Diagnosis (1) Risk of labor during , antepartum Is this a current diagnosis for this admission?: Yes (2) Rupture, membranes, premature Qualifiers: PROM gestational age: -third trimester Is this a current diagnosis for this admission?: Yes - Time Time Spent with patient: 15-24 minutes Within: Other - After delivery--plan for delivery at 34 weeks - Plan Summary Plan Summary: 1. Continue current care 2. Change antibiotics to oral
[2019-03-28] MEDS: ERYTHROMYCIN ETHYLSUCC 400 MG/5 ML SUSP 100 ML PO SCH ×2 (14:49→21:24)
[2019-03-28] MEDS: RINGERS SOLUTION,LACTATED 1,000 ML IV PRN (14:49)
[2019-03-28] MEDS ORDERED: AMOXICILLIN TRIHYD 250 MG CAPSULE PO SCH (18:00)
--- NOTE | 2019-03-28 23:08 | RADIOLOGY REPORT (SQ) ---
EXAM DESCRIPTION: US LIMITED COMPLETED DATE/TME: 03/28/2019 22:12 CLINICAL HISTORY: 23 years, Female, abdominal/pelvic pressure COMPARISON: 03/22/2019 ultrasound TECHNIQUE: Limited OB ultrasound LIMITATIONS: None. FINDINGS: Single, live intrauterine gestation in the cephalic presentation. Cervical length is 2.9 cm. A small amount of fluid in the endocervical canal is suggested. The placenta is fundal in location without evidence for previa. Grade 1 echotexture. Amniotic fluid index 10.4 cm. heart tones 143 bpm. A detailed anatomic assessment was not performed. IMPRESSION: Small amount of fluid within the endocervical canal. A component of cervical funneling is not excluded. Close obstetric follow-up is recommended. Single live IUP. Detailed anatomic assessment not performed at this time. copyright 2010 [email or web address]- All Rights Reserved
[2019-03-29] MEDS: RINGERS SOLUTION,LACTATED 1,000 ML IV PRN (02:24)
[2019-03-29] MEDS: AMOXICILLIN TRIHYD 250 MG CAPSULE PO SCH ×3 (05:23→21:53)
[2019-03-29] MEDS: ERYTHROMYCIN ETHYLSUCC 400 MG/5 ML SUSP 100 ML PO SCH ×3 (05:24→21:53)
--- NOTE | 2019-03-29 08:27 | PDOC PROGRESS REPORT ---
Subjective Progress Note for:: 03/29/19 Subjective:: Patient states that she feels good. Patient is now having occasional contractions. She reports good movement. A little more pink discharge. She is afebrile. She is tolerating a regular diet. She is ambulating voiding without difficulty. Reason For Visit: POST Physical Exam - Physical Exam Vital Signs: Temp Pulse Resp BP Pulse Ox 98.0 F 80 18 106/61 97 03/29/19 04:25 03/29/19 04:25 03/29/19 04:25 03/29/19 04:25 03/29/19 04:25 Intake & Output 03/28/19 03/29/19 03/30/19 06:59 06:59 06:59 Intake Total 2500 1669 Balance 2500 1669 Weight 102.5 kg 99.8 kg General appearance: PRESENT: no acute distress Respiratory exam: PRESENT: clear to auscultation kristine Cardiovascular exam: PRESENT: RRR GI/Abdominal exam: PRESENT: normal bowel sounds, soft Musculoskeletal exam: ABSENT: ambulatory, deformity, dislocation, full ROM, normal inspection, tenderness, other Result Laboratory Results: 03/24/19 06:00 03/24/19 06:00 03/26/19 15:36 Clean Catch Midstream Urine Culture - Final NO GROWTH 2 DAYS Impressions: Obstetrics Ultrasound 03/28/19 22:12 IMPRESSION: Small amount of fluid within the endocervical canal. A component of cervical funneling is not excluded. Close obstetric follow-up is recommended. Single live IUP. Detailed anatomic assessment not performed at this time. copyright 2011 [employer]- All Rights Reserved Assessment & Plan - Diagnosis (1) Risk of labor during , antepartum Is this a current diagnosis for this admission?: Yes (2) Rupture, membranes, premature Qualifiers: PROM gestational age: -third trimester Is this a current diagnosis for this admission?: Yes - Time Time Spent with patient: Less than 15 minutes - Plan Summary Plan Summary: 1. Continue current care 2. Continue oral antibiotics until labor induction on Tuesday
--- NOTE | 2019-03-29 10:33 | PDOC PROGRESS REPORT ---
Subjective-OB Progress Note for:: 03/29/19 - at 33.5 wks with PPROM on 03/24. s/p Betamethasone. Pt on prophylatic antibiotic therapy. GBS unknown. Called to the room due to pt c/o increasing contractions w/ continued leaking of amniotic fluid. Sterile spec exam done, was unable to visualize cervix. Sterile VE done, no presenting part noted, was no able to reach pts cervix on exam. Physical Exam (OB) Vital Signs: Temp Pulse Resp BP Pulse Ox 98.1 F 94 16 117/67 98 03/29/19 07:52 03/29/19 07:52 03/29/19 07:52 03/29/19 07:52 03/29/19 07:52 Intake & Output 03/28/19 03/29/19 03/30/19 06:59 06:59 06:59 Intake Total 2500 1669 Balance 2500 1669 Weight 102.5 kg 99.8 kg - Abdomen Hernia Present: No Fundal Height: u/3 - u/4 - Respiratory Respiratory Status: No respiratory distress - Abdominal Abdominal Notes: was able to palpate a contraction. EFM w/ toco on to access for PTL Objective-Diagnostic Laboratory: 03/24/19 06:00 03/24/19 06:00 03/26/19 15:36 Clean Catch Midstream Urine Culture - Final NO GROWTH 2 DAYS Assessment and Plan(PN) - Assessment and Plan (1) 33 weeks gestation of Is this a current diagnosis for this admission?: Yes (2) Risk of labor during , antepartum Is this a current diagnosis for this admission?: Yes (3) Rupture, membranes, premature Qualifiers: PROM onset of labor timing: unspecified duration between rupture of membranes and onset of labor PROM gestational age: -third trimester Qualified Code(s): O42.913 - premature rupture of membranes, unspecified as to length of time between rupture and onset of labor, third trimester Is this a current diagnosis for this admission?: Yes Plan:: Discussed pt status w/ Dr Epps and will transfer pt back to labor and delivery to r/o PTL - Time Spent with Patient Time with patient: 15-25 minutes Medications reviewed and adjusted accordingly: Yes
[2019-03-29] MEDS ORDERED: MORPHINE SULFATE 10 MG/ML INJ IM ONE (11:00)
[2019-03-29] MEDS ORDERED: RINGERS SOLUTION,LACTATED 500 ML IV ONE (11:30)
[2019-03-29 11:47] LABS: ABSOLUTE EOSINOPHILS # (AUTO) 0.1 10^3/uL (0.0-0.6); ABSOLUTE LYMPHOCYTES (AUTO) 2.2 10^3/uL (0.5-4.7); ABSOLUTE MONOCYTES (AUTO) 0.7 10^3/uL (0.1-1.4); ABSOLUTE NEUT (AUTO) 7.9 10^3/uL (1.7-8.2); BASOPHILS % (AUTO) 0.1 % (0-2); EOSINOPHILS % (AUTO) 1.2 % (0-6); HEMATOCRIT 34.2 % (36.0-47.0); HEMOGLOBIN 11.7 g/dL (12.0-15.5); LYMPHOCYTES % (AUTO) 19.9 % (13-45); MEAN CORPUSCULAR HGB CONC 34.2 g/dL (32.0-36.0); MEAN CORPUSCULAR VOLUME 91 fl (80-97); MONOCYTES % (AUTO) 6.2 % (3-13); PLATELET COUNT 194 10^3/uL (150-450); RED BLOOD COUNT 3.78 10^6/uL (3.72-5.28); RED CELL DISTRIBUTION WIDTH 14.7 % (11.5-14.0); SEGMENTED NEUTROPHILS % (AUTO) 72.6 % (42-78); TOTAL CELLS COUNTED % (AUTO) 100 %
[2019-03-30] MEDS: AMOXICILLIN TRIHYD 250 MG CAPSULE PO SCH ×3 (05:42→22:25)
[2019-03-30] MEDS: ERYTHROMYCIN ETHYLSUCC 400 MG/5 ML SUSP 100 ML PO SCH ×3 (05:43→22:26)
--- NOTE | 2019-03-30 11:29 | PDOC PROGRESS REPORT ---
Subjective Progress Note for:: 03/30/19 Subjective:: pt doing well plan of management discussed Reason For Visit: POST Physical Exam - Physical Exam Vital Signs: Temp Pulse Resp BP Pulse Ox 97.8 F 103 H 16 115/66 100 03/30/19 07:50 03/30/19 07:50 03/30/19 07:50 03/30/19 07:50 03/30/19 07:50 Intake & Output 03/29/19 03/30/19 03/31/19 06:59 06:59 06:59 Intake Total 1669 500 Balance 1669 500 Weight 99.8 kg General appearance: PRESENT: no acute distress Respiratory exam: PRESENT: clear to auscultation kristine Cardiovascular exam: PRESENT: RRR Result Laboratory Results: 03/29/19 11:12 03/24/19 06:00 03/29/19 03/29/19 11:12 20:12 WBC 11.0 H RBC 3.78 Hgb 11.7 L Hct 34.2 L MCV 91 MCH 31.0 MCHC 34.2 RDW 14.7 H Plt Count 194 Seg Neutrophils % 72.6 Blood Type O POSITIVE Antibody Screen NEGATIVE Impressions: Obstetrics Ultrasound 03/28/19 22:12 IMPRESSION: Small amount of fluid within the endocervical canal. A component of cervical funneling is not excluded. Close obstetric follow-up is recommended. Single live IUP. Detailed anatomic assessment not performed at this time. copyright 2011 [employer]- All Rights Reserved Assessment & Plan - Diagnosis (1) Rupture, membranes, premature Qualifiers: PROM onset of labor timing: unspecified duration between rupture of membranes and onset of labor PROM gestational age: -third trimester Qualified Code(s): O42.913 - premature rupture of membranes, unspecified as to length of time between rupture and onset of labor, third trimester Is this a current diagnosis for this admission?: Yes (2) 33 weeks gestation of Is this a current diagnosis for this admission?: Yes - Time Time Spent with patient: Less than 15 minutes - Plan Summary Plan Summary: plan pitocin induction in am
[2019-03-31] MEDS ORDERED: LIDOCAINE 1% INJ-PF (10 MG/ML) 30 ML SDV ONE (05:48)
[2019-03-31] MEDS ORDERED: MISOPROSTOL 0.2 MG TABLET ONE (05:48)
[2019-03-31] MEDS ORDERED: OXYTOCIN 10 UNIT/ML VIAL ONE (05:48)
[2019-03-31] MEDS ORDERED: OXYTOCIN/NORMAL SALINE 20 UNIT/1,000 ML RTUINJ ONE (05:48)
[2019-03-31 06:22] LABS: ABSOLUTE EOSINOPHILS # (AUTO) 0.2 10^3/uL (0.0-0.6); ABSOLUTE LYMPHOCYTES (AUTO) 2.7 10^3/uL (0.5-4.7); ABSOLUTE MONOCYTES (AUTO) 0.8 10^3/uL (0.1-1.4); ABSOLUTE NEUT (AUTO) 8.6 10^3/uL (1.7-8.2); BASOPHILS % (AUTO) 0.2 % (0-2); EOSINOPHILS % (AUTO) 1.3 % (0-6); HEMATOCRIT 35.5 % (36.0-47.0); HEMOGLOBIN 12.1 g/dL (12.0-15.5); LYMPHOCYTES % (AUTO) 22.1 % (13-45); MEAN CORPUSCULAR HEMOGLOBIN 30.7 pg (27.0-33.4); MEAN CORPUSCULAR VOLUME 91 fl (80-97); MONOCYTES % (AUTO) 6.3 % (3-13); PLATELET COUNT 231 10^3/uL (150-450); RED BLOOD COUNT 3.92 10^6/uL (3.72-5.28); RED CELL DISTRIBUTION WIDTH 14.5 % (11.5-14.0); SEGMENTED NEUTROPHILS % (AUTO) 70.1 % (42-78); TOTAL CELLS COUNTED % (AUTO) 100 %; WHITE BLOOD COUNT 12.3 10^3/uL (4.0-10.5)
[2019-03-31] MEDS ORDERED: PHENYLEPHRINE HCL INJ/PF 10 MG/1 ML SDV ONE (09:14)
[2019-03-31] MEDS ORDERED: FENTANYL CITRATE INJ/PF 100 MCG/2 ML AMPUL ONE (09:15)
[2019-03-31] MEDS ORDERED: FENTANYL/BUPIVACAINE/NS/PF 300 MCG/150 ML RTUINJ EPI ONE (09:15)
[2019-03-31] MEDS ORDERED: EPHEDRINE SULFATE INJ 50 MG/1 ML AMPULE ONE (09:15)
[2019-03-31] MEDS ORDERED: BUPIVACAINE HCL 0.25 % INJ/PF (2.5 MG/1 ML) 30 ML VIAL ONE (09:15)
[2019-03-31] MEDS ORDERED: BENZOCAINE/MENTHOL AEROSOL SPRAY 56 ML TOP PRN (12:24)
[2019-03-31] MEDS ORDERED: DIPH/PERTUSS(ACELL)/TETANUS VAC/PF 0.5 ML SYR (>=10YO) IM PRN (12:24)
[2019-03-31] MEDS ORDERED: ACETAMINOPHEN WITH CODEINE #3 TABLET PO PRN ×2 (12:24)
[2019-03-31] MEDS ORDERED: OXYTOCIN/NORMAL SALINE 20 UNIT/1,000 ML RTUINJ IV PRN (12:24)
[2019-03-31] MEDS ORDERED: DIBUCAINE 1% OINTMENT 56 GM TP PRN (12:24)
[2019-03-31] MEDS ORDERED: ZOLPIDEM TARTRATE 5 MG TABLET PO PRN (12:24)
[2019-03-31] MEDS ORDERED: IBUPROFEN 800 MG TABLET PO SCH (14:00)
--- NOTE | 2019-03-31 15:34 | Delivery Summary ---
Del Sum A-C Datetime Report Generated by CPN: 03/31/2019 15:33 DELIVERY PERSONNEL DELIVERY PERSONNEL: [id number] Delivery Doctor:: Allie Walls MD Labor and Delivery Nurse:: Jo Hodge RN Nursery Nurse:: Veena Lagos RN Nursery Nurse:: Ida Vega RN Office Clin Asst/INDUSTRIAL EDUCATION INSTRUCTOR: Adela Meek, ST MATERNAL INFORMATION Delivery Anesthesia: Local; Epidural Medications After Delivery: Pitocin Bolus-Please Comment; Pitocin Drip 20 Units/1000ml NSS Delivery QBL: 350 Maternal Complications: Premature Rupture of Membranes Complication Details: PPROM Provider Comments: of a viable male at 1158 w/ an OA w/ nuchal cord x 1 presentation; APGARS 8, 9; 2nd deg midline lac LABOR SUMMARY EDC: 05/12/2019 00:00 No. Babies in Womb: 1 Attempted: No Labor Anesthesia: Epidural LABOR INFORMATION Reason for Induction: Premature Rupture of Membranes Onset of Labor: 03/31/2019 08:00 Complete Dilatation: 03/31/2019 11:52 Oxytocin: Induction Group B Beta Strep: 1 NO GROUP B STREPTOCOCCUS RECOVERED Antibiotics # of Doses: 0 Steroids Given: Full Course Reason Steroids Not Administered: Indication MEMBRANES Membranes Rupture Method: Spontaneous Rupture of Membranes: 03/24/2019 04:00 Length of Rupture (hr): 175.97 Amniotic Fluid Color: Clear Amniotic Fluid Amount: Moderate Amniotic Fluid Odor: Normal STAGES OF LABOR Stage 1 hr: 3 Stage 1 min: 52 Stage 2 hr: 0 Stage 2 min: 6 Stage 3 hr: 0 Stage 3 min: 5 Total Time in Labor hr: 4 Total Time in Labor min: 3 VAGINAL DELIVERY Episiotomy: None Laceration #1: Vaginal Laceration Extension #1: Second Degree Other Laceration: MIDLINE VAGINAL LAC Laceration Repair: Yes Laceration Repair Note: 2nd deg midline lac repaired with 2-0 vicryl Sponge Count Correct: Yes Sharps Count Correct: Yes BABY A INFORMATION Delivery Date/Time: 03/31/2019 11:58 Method of Delivery: Vaginal Born in Route : No : N/A Forceps: N/A Vacuum Extraction: N/A Shoulder Dystocia : No PRESENTATION/POSITION BABY A Presentation: Cephalic Cephalic Presentation: Vertex Vertex Position: OA Breech Presentation: N/A (Annotations: Data stored by [facility] on behalf of user) PLACENTA INFORMATION BABY A Placenta Delivery Time : 03/31/2019 12:03 Placenta Method of Delivery: Spontaneous Placenta Status: Delivered SCORES BABY A Heart Rate 1 min: >100 bpm Resp Effort 1 min: Good Cry Reflex Irritability 1 min: Cough or Sneeze or Pulls Away Muscle Tone 1 min: Active Motion Color 1 min: Blue/Pale Resuscitation Effort 1 min: Tactile Stimulation SCORE 1 MIN: 8 Heart Rate 5 min: >100 bpm Resp Effort 5 min: Good Cry Reflex Irritability 5 min: Cough or Sneeze or Pulls Away Muscle Tone 5 min: Active Motion Color 5 min: Body [place], Extremities Blue Resuscitation Effort 5 min: Tactile Stimulation SCORE 5 MIN: 9 INFORMATION BABY A Gestational Age at Delivery: 34.0 Gestational Status: Late - 34- 36.6 Weeks Outcome : Liveborn Infant Condition : Stable Infant Sex: Male IDENTIFICATION BABY A Verification Date/Time: 03/31/2019 12:54 ID Band Number: [id number] Mother's Name Verified: Yes Infant RN Verifying Infant: JACI HODGE RN Additional Verifying Personnel: Raquel PANIAGUA, RN WEIGHT/LENGTH BABY A Infant Birthweight (gm): 2622 Weight (lb): 5 Infant Weight (oz): 12 Infant Length (in): 19.00 Length (cm): 48.26 CORD INFORMATION BABY A No. Cord Vessels: 3 Nuchal Cord : Around Neck x1, Loose Cord Blood Taken: Yes-For Eval (Mom's Blood Type - or O+) Infant Suction: None ASSESSMENT BABY A Complications: Other Complications- Other: PPROM SINCE 03/24/2019 Physical Findings at Delivery: Within Normal Limits Respirations: Appears Normal Skin to Skin: Yes Restaurant Crew Person/ALS Called : No Infant Care By: Bety LAGOS RN Transferred To: Remains with Mother BABY B INFORMATION : N/A SIGNATURES Signature: with User ID: [email or web address]
[2019-03-31] MEDS: FERROUS SULFATE 325 MG TABLET PO SCH (17:51)
[2019-03-31] MEDS: DOCUSATE SODIUM 100 MG CAPSULE PO SCH (17:51)
[2019-04-01] MEDS: IBUPROFEN 800 MG TABLET PO SCH ×4 (02:11→17:37)
[2019-04-01 08:55] LABS: HEMATOCRIT 32.6 % (36.0-47.0); HEMOGLOBIN 11.3 g/dL (12.0-15.5); MEAN CORPUSCULAR HEMOGLOBIN 30.8 pg (27.0-33.4); MEAN CORPUSCULAR HGB CONC 34.5 g/dL (32.0-36.0); MEAN CORPUSCULAR VOLUME 89 fl (80-97); PLATELET COUNT 226 10^3/uL (150-450); RED BLOOD COUNT 3.66 10^6/uL (3.72-5.28); RED CELL DISTRIBUTION WIDTH 14.2 % (11.5-14.0)
[2019-04-01] MEDS: DOCUSATE SODIUM 100 MG CAPSULE PO SCH ×2 (10:05→20:42)
[2019-04-01] MEDS: FERROUS SULFATE 325 MG TABLET PO SCH ×2 (10:05→17:37)
[2019-04-01] MEDS: SENNOSIDES/DOCUSATE 8.6-50 MG 1 EACH TABLET PO SCH (10:05)
[2019-04-01] MEDS: PRENATAL VITAMIN W DHA CAPSULE PO SCH (10:05)
--- NOTE | 2019-04-01 12:26 | PDOC PROGRESS REPORT ---
Subjective-OB Progress Note for:: 04/01/19 Subjective: reports bleeding slowing, pain controlled with current meds, denies needs Physical Exam (OB) Vital Signs: Temp Pulse Resp BP Pulse Ox 97.8 F 83 18 117/66 98 04/01/19 07:52 04/01/19 07:52 04/01/19 07:52 04/01/19 07:52 04/01/19 07:52 Intake & Output 03/31/19 04/01/19 04/02/19 06:59 06:59 06:59 Intake Total 1000 1000 Balance 1000 1000 - Abdomen Description: Soft Hernia Present: No Fundal Description: Firm, Midline Fundal Height: u/u - u/2 - Abdominal Distension: No distension Tenderness: Nontender - Extremities Lower extremities: Cristian's sign - neg Calf: Normal, Nontender Objective-Diagnostic Laboratory: 04/01/19 08:28 03/24/19 06:00 04/01/19 08:28 WBC 11.0 H RBC 3.66 L Hgb 11.3 L Hct 32.6 L MCV 89 MCH 30.8 MCHC 34.5 RDW 14.2 H Plt Count 226 Assessment and Plan(PN) - Assessment and Plan (1) premature rupture of membranes (PPROM) delivered, current hospitalization Is this a current diagnosis for this admission?: Yes (2) delivery Is this a current diagnosis for this admission?: Yes (3) Normal vaginal delivery Is this a current diagnosis for this admission?: Yes (4) Obstetrical laceration, second degree Is this a current diagnosis for this admission?: Yes - Time Spent with Patient Time with patient: Less than 15 minutes Medications reviewed and adjusted accordingly: Yes - Disposition Anticipated Discharge: Home Within: within 24 hours
[2019-04-02] MEDS: IBUPROFEN 800 MG TABLET PO SCH ×2 (05:35→10:50)
--- NOTE | 2019-04-02 10:33 | PDOC DISCHARGE SUMMARY ---
Impression - Admit/DC Date/PCP Admission Date/Primary Care Provider: 03/24/19 05:38 LINETTE WHITFIELD MD Discharge Date: 04/02/19 - Discharge Diagnosis (1) 33 weeks gestation of Is this a current diagnosis for this admission?: Yes (2) Normal vaginal delivery Is this a current diagnosis for this admission?: Yes (3) Obstetrical laceration, second degree Is this a current diagnosis for this admission?: Yes (4) delivery Is this a current diagnosis for this admission?: Yes (5) premature rupture of membranes (PPROM) delivered, current hospitalization Is this a current diagnosis for this admission?: Yes - Additional Information Resuscitation Status: Full Code Discharge Diet: Regular Discharge Activity: Balance Activity w/Rest, Pelvic Rest Referrals: LINETTE WHITFIELD MD [Primary Care Provider] - Home Medications: Pnv No.95/Ferrous Fum/Folic AC [ Caplet] 1 each PO DAILY #20 tablet 09/05/18 Ferrous Sulfate [Iron] 325 mg PO DAILY 03/22/19 Results Laboratory Results: WBC 11.0 10^3/uL (4.0-10.5) H 04/01/19 08:28 RBC 3.66 10^6/uL (3.72-5.28) L 04/01/19 08:28 Hgb 11.3 g/dL (12.0-15.5) L 04/01/19 08:28 Hct 32.6 % (36.0-47.0) L 04/01/19 08:28 MCV 89 fl (80-97) 04/01/19 08:28 MCH 30.8 pg (27.0-33.4) 04/01/19 08:28 MCHC 34.5 g/dL (32.0-36.0) 04/01/19 08:28 RDW 14.2 % (11.5-14.0) H 04/01/19 08:28 Plt Count 226 10^3/uL (150-450) 04/01/19 08:28 Lymph % (Auto) 22.1 % (13-45) 03/31/19 06:00 [place] % (Auto) 6.3 % (3-13) 03/31/19 06:00 Eos % (Auto) 1.3 % (0-6) 03/31/19 06:00 Baso % (Auto) 0.2 % (0-2) 03/31/19 06:00 Absolute Neuts (auto) 8.6 10^3/uL (1.7-8.2) H 03/31/19 06:00 Absolute Lymphs (auto) 2.7 10^3/uL (0.5-4.7) 03/31/19 06:00 Absolute Monos (auto) 0.8 10^3/uL (0.1-1.4) 03/31/19 06:00 Absolute Eos (auto) 0.2 10^3/uL (0.0-0.6) 03/31/19 06:00 Absolute Basos (auto) 0.0 10^3/uL (0.0-0.2) 03/31/19 06:00 Seg Neutrophils % 70.1 % (42-78) 03/31/19 06:00 Sodium 140.2 mmol/L (137-145) 03/24/19 06:00 Potassium 3.9 mmol/L (3.6-5.0) 03/24/19 06:00 Chloride 111 mmol/L (98-107) H 03/24/19 06:00 Carbon Dioxide 19 mmol/L (22-30) L 03/24/19 06:00 Anion Gap 10 (5-19) 03/24/19 06:00 BUN 4 mg/dL (7-20) L 03/24/19 06:00 Creatinine 0.38 mg/dL (0.52-1.25) L 03/24/19 06:00 Est GFR ( Amer) > 60 (>60) 03/24/19 06:00 Est GFR (MDRD) Non-Af > 60 (>60) 03/24/19 06:00 Glucose 96 mg/dL (75-110) 03/24/19 06:00 Uric Acid 4.4 mg/dL (2.5-6.2) 03/24/19 06:00 Calcium 8.8 mg/dL (8.4-10.2) 03/24/19 06:00 Magnesium 4.9 mg/dL (1.6-2.3) H* 03/24/19 23:25 Total Bilirubin 0.3 mg/dL (0.2-1.3) 03/24/19 06:00 Direct Bilirubin 0.1 mg/dL (0.0-0.4) 03/24/19 06:00 Neonat Total Bilirubin Not Reportable 03/24/19 06:00 Neonat Direct Bilirubin Not Reportable 03/24/19 06:00 Neonat Indirect Bili Not Reportable 03/24/19 06:00 AST 15 U/L (14-36) 03/24/19 06:00 ALT 11 U/L (<35) 03/24/19 06:00 Alkaline Phosphatase 111 U/L (38-126) 03/24/19 06:00 Lactate Dehydrogenase 122 U/L (120-246) 03/24/19 06:00 Total Protein 6.4 g/dL (6.3-8.2) 03/24/19 06:00 Albumin 3.5 g/dL (3.5-5.0) 03/24/19 06:00 Urine Color STRAW 03/24/19 05:10 Urine Appearance CLEAR 03/24/19 05:10 Urine pH 7.0 (5.0-9.0) 03/24/19 05:10 Ur Specific [place] 1.001 03/24/19 05:10 Urine Protein NEGATIVE mg/dL (NEGATIVE) 03/24/19 05:10 Urine Glucose (UA) NEGATIVE mg/dL (NEGATIVE) 03/24/19 05:10 Urine Ketones NEGATIVE mg/dL (NEGATIVE) 03/24/19 05:10 Urine Blood NEGATIVE (NEGATIVE) 03/24/19 05:10 Urine Nitrite NEGATIVE (NEGATIVE) 03/24/19 05:10 Urine Bilirubin NEGATIVE (NEGATIVE) 03/24/19 05:10 Urine Urobilinogen NEGATIVE mg/dL (<2.0) 03/24/19 05:10 Ur Leukocyte Esterase NEGATIVE (NEGATIVE) 03/24/19 05:10 Urine WBC (Auto) 3 /HPF 03/24/19 05:10 Urine RBC (Auto) 0 /HPF 03/24/19 05:10 Squamous Epi Cells Auto 1 /HPF 03/24/19 05:10 Urine Ascorbic Acid NEGATIVE (NEGATIVE) 03/24/19 05:10 Membranes Rupture POSITIVE (NEGATIVE) H 03/24/19 05:13 Urine Opiates Screen NEGATIVE 03/24/19 05:10 Urine Methadone Screen NEGATIVE 03/24/19 05:10 Ur Barbiturates Screen NEGATIVE 03/24/19 05:10 Ur Phencyclidine Scrn NEGATIVE 03/24/19 05:10 Ur Amphetamines Screen NEGATIVE 03/24/19 05:10 U Benzodiazepines Scrn NEGATIVE 03/24/19 05:10 Urine Cocaine Screen NEGATIVE 03/24/19 05:10 U Marijuana (THC) Screen NEGATIVE 03/24/19 05:10 RPR NONREACTIVE (NONREACTIVE) 03/24/19 06:00 Chlamydia DNA (PCR) NOT DETECTED (NOT DETECT) 03/24/19 08:42 N.gonorrhoeae DNA (PCR) NOT DETECTED (NOT DETECT) 03/24/19 08:42 Blood Type O POSITIVE 03/29/19 20:12 Antibody Screen NEGATIVE 03/29/19 20:12 Impressions: Obstetrics Ultrasound 03/28/19 22:12 IMPRESSION: Small amount of fluid within the endocervical canal. A component of cervical funneling is not excluded. Close obstetric follow-up is recommended. Single live IUP. Detailed anatomic assessment not performed at this time. copyright 2010 [employer]- All Rights Reserved
[2019-04-02] MEDS: SENNOSIDES/DOCUSATE 8.6-50 MG 1 EACH TABLET PO SCH (10:50)
[2019-04-02] MEDS: PRENATAL VITAMIN W DHA CAPSULE PO SCH (10:50)
[2019-04-02] MEDS: FERROUS SULFATE 325 MG TABLET PO SCH (10:50)
[2019-04-02 11:47] VITALS: BP 122/77
[2019-04-02] MEDS: DOCUSATE SODIUM 100 MG CAPSULE PO SCH (12:14)
== END 2019-04-02 15:30 | disposition home or self-care (01) | DRG 807 ==
LOC: LC 04:58 → LR 05:38 → 2S 03-25 09:50 → LR 03-29 11:58 → 2S 03-30 07:15 → LR 03-31 05:39 → 2S 03-31 15:15
PROVIDERS: ADMIT Obstetrics & Gynecology; ATTEND Obstetrics & Gynecology
PROC: 10E0XZZ Delivery of Products of Conception, External Approach (ICD-10-PCS; principal; 2019-03-31)
PROC: 0KQM0ZZ Repair Perineum Muscle, Open Approach (ICD-10-PCS; 2019-03-31)
DX: O42.913 Preterm premature rupture of membranes, unspecified as to length of time between rupture and onset of labor, third trimester (principal); Z37.0 Single live birth; O16.4 Unspecified maternal hypertension, complicating childbirth; O69.81X0 Labor and delivery complicated by cord around neck, without compression, not applicable or unspecified; O70.1 Second degree perineal laceration during delivery; Z3A.33 33 weeks gestation of pregnancy; J45.20 Mild intermittent asthma, uncomplicated; Z88.8 Allergy status to other drugs, medicaments and biological substances; Z88.1 Allergy status to other antibiotic agents; Z91.041 Radiographic dye allergy status; J30.2 Other seasonal allergic rhinitis
CPT/HCPCS: 36415; 59025; 76815; 80053; 80307; 81001; 83615; 83735; 84112; 84550; 85025; 85027; 86592; 86850; 86900; 86901; 87081; 87086; 87491; 87591; 88307; 96372; J0290; J0702; J1364; J2370; J2590; J3010; J3475; J3490; J7050; J7120